=== PATIENT | female | born 1990 ===

== ENCOUNTER 2017-06-24 09:58 | Emergency (ER) | payer OTHER ==
[2017-06-24 10:12] VITALS: BP 119/69; PULSE 91; RESP 20; TEMP 97; O2SAT 100
[2017-06-24 10:13] VITALS: BMI 26.5
--- NOTE | 2017-06-24 12:00 | ED PDOC ---
Lower Extremity Pain/Injury Time Seen by Provider: 06/24/17 10:43 Chief Complaint (Nursing): Lower Extremity Problem/Injury Chief Complaint (Provider): Lower Extremity Problem/Injury History Per: Patient History/Exam Limitations: no limitations Onset/Duration Of Symptoms: Days (x2 months) Current Symptoms Are (Timing): Still Present Additional Complaint(s): Iman De Leon is a 26 year old female with previous medical history of asthma, who presents to the emergency department with a complaint of bilateral ankle pain exasperated with ambulation ongoing for 2 months. Denied any fever, chills or further medical complaints. Patient stated she was evaluated upon initial onset by [facility] where an xray was done but has not followed up since and treats pain with Motrin. PMD: none provided Past Medical History Reviewed: Historical Data, Nursing Documentation, Vital Signs Vital Signs: Last Vital Signs Temp 97 F L 06/24/17 10:12 Pulse 91 H 06/24/17 10:12 Resp 20 06/24/17 10:12 BP 119/69 06/24/17 10:12 Pulse Ox 100 06/24/17 10:12 - Medical History PMH: Asthma Denies: Chronic Kidney Disease - Surgical History Surgical History: No Surg Hx - Family History Family History: States: Unknown Family Hx - Social History Current smoker - smoking cessation education provided: No Ex-Smoker (has not smoked in the last 12 months): No Alcohol: Social Drugs: Denies - Home Medications Home Medications: Ambulatory Orders Medication Instructions Recorded Naproxen [Naprosyn] 500 mg PO BID PRN #15 tablet 06/24/17 - Allergies Allergies/Adverse Reactions: Allergies Allergy/AdvReac Type Severity Reaction Status Date / Time No Known Allergies Allergy Verified 06/24/17 11:01 Review of Systems ROS Statement: Except As Marked, All Systems Reviewed And Found Negative Musculoskeletal: Positive for: Foot Pain (bilateral ankles) Physical Exam - Reviewed Nursing Documentation Reviewed: Yes Vital Signs Reviewed: Yes - Physical Exam Appears: Positive for: Well, Non-toxic, No Acute Distress Head Exam: Positive for: ATRAUMATIC, NORMAL INSPECTION, NORMOCEPHALIC Cardiovascular/Chest: Positive for: Regular Rate, Rhythm. Negative for: Chest Non Tender Respiratory: Positive for: Normal Breath Sounds, Accessory Muscle Use. Negative for: Decreased Breath Sounds, Respiratory Distress Extremity: Positive for: Normal ROM (ambulating well), Tenderness (bilateral lateral malleolus), Capillary Refill (< 2), Other (bilateral sensation intact). Negative for: Pedal Edema, Calf Tenderness, Deformity (erythema or edema) DTR - Ankle (R): 2+ DTR - Ankle (L): 2+ Neurologic/Psych: Positive for: Alert, Oriented, Gait (steady). Negative for: Motor/Sensory Deficits, Aphasia - ECG O2 Sat by Pulse Oximetry: 100 (RA) Pulse Ox Interpretation: Normal Medical Decision Making Medical Decision Making: Initial Impression: Chronic ankle pain Initial Plan: * Urine dipstick * Urine * Xray ankle (SINDY) Scribe Attestation: Documented by Tessa Salguero, acting as a scribe for Ibis Encarnacion MD. Provider Scribe Attestation: All medical record entries made by the Scribe were at my direction and personally dictated by me. I have reviewed the chart and agree that the record accurately reflects my personal performance of the history, physical exam, medical decision making, and the department course for this patient. I have also personally directed, reviewed, and agree with the discharge instructions and disposition. Disposition - Clinical Impression Clinical Impression: Chronic ankle pain, bilateral - Disposition Referrals: [facility] [Outside] [facility] [Outside] Disposition: Routine/Home Disposition Time: 13:52 Condition: STABLE Prescriptions: Naproxen [Naprosyn] 500 mg PO BID PRN #15 tablet PRN Reason: Pain, Moderate (4-7) Instructions: Arthralgia (ED) Forms: [employer] (Emirati) Print Language: NIUEAN
--- NOTE | 2017-06-24 13:25 | RAD ---
PROCEDURE: Bilateral Ankle Radiographs. HISTORY: Bilateral ankle pain X 2 months COMPARISON: None FINDINGS: BONES: No fracture subluxation or dislocation is identified. No suspicious lytic or blastic change throughout. JOINTS: Right Ankle: Normal. No osteoarthritis. Ankle mortise maintained. Talar dome intact. Left Ankle: Normal. No osteoarthritis. Ankle mortise maintained. Talar dome intact. SOFT TISSUES: Right Ankle: Normal. Left Ankle: Normal. OTHER FINDINGS: None. IMPRESSION: Normal bilateral ankle radiographs.
== END 2017-06-24 14:13 | disposition home or self-care (01) ==
LOC: H.ER 09:58
DX: M25.571 Pain in right ankle and joints of right foot (principal); M25.572 Pain in left ankle and joints of left foot